=== PATIENT | male | born 1990 | race Two or more races ===

== ENCOUNTER 2020-04-23 16:22 | Emergency (ER) | payer OTHER ==
[~2020-04-23] VITALS: Ht 182.9 cm; Wt 79.4 kg
[2020-04-23] MEDS ORDERED: BENZOCAINE (DENTAL) 20 % SPRAY 60ML MT ONE (17:15)
[2020-04-23 17:29] VITALS: BP 156/82
[2020-04-23] MEDS ORDERED: HYDROcodone-ACET 5/325MG TAB PO ONE (17:30)
== END 2020-04-23 17:45 | disposition home or self-care (01) ==
LOC: ER 16:22
DX: K04.7 Periapical abscess without sinus (principal); F17.210 Nicotine dependence, cigarettes, uncomplicated